=== PATIENT | male | born 1960 | race African-American/Black ===

== ENCOUNTER 2017-08-19 17:35 | Emergency (ER) | payer MEDICAID ==
[~2017-08-19] VITALS: Ht 175.3 cm; Wt 132.7 kg
[~2017-08-19 17:35] MED LIST: ASPI-1159 PO; BENA20TA3 PO; CHOL200010 PO; CHOL20004 PO; CLOP75TA33 PO; DOCU-138 PO; GEMF600T3 PO; ISOS30TA6 PO; METF500T6 PO; METO25TA6 PO; OMEP20CA10 PO
[2017-08-19] MEDS ORDERED: HYDROCODONE/ACETAMINOPHEN 5/325MG TABLET PO ONE ×2 (22:00→22:15)
[2017-08-19] MEDS ORDERED: ONDANSETRON 4MG ODT PO ONE (22:00)
[2017-08-19 22:35] LABS: BASOPHILS % 0.4 % (0.0-2.0); EOSINOPHILS % 2.4 % (0.0-5.0); HEMATOCRIT. 39.6 % (42.0-52.0); HEMOGLOBIN. 12.8 g/dL (14.0-18.0); LYMPHOCYTES % 37.1 % (20.0-50.0); MEAN CORPUSCULAR HEMOGLOBIN 23.5 pg (28.0-32.0); MEAN CORPUSCULAR VOLUME 72.8 fL (80.0-94.0); MEAN PLATELET VOLUME 7.7 fl (7.4-10.4); MONOCYTES % 8.5 % (2.0-8.0); NEUTROPHILS % 51.6 % (40.0-76.0); PLATELET 280 x1000/uL (130-400); RED BLOOD CELL COUNT 5.44 mill/uL (4.7-6.1); RED CELL DISTRIBUTION WIDTH 15.1 % (11.6-14.6)
[2017-08-19 22:40] LABS: INR 1.1; PARTIAL THROMBOPLASTIN TIME 25.9 sec (23.4-31.0)
[2017-08-20 00:32] VITALS: BP 137/82
== END 2017-08-20 00:34 | disposition home or self-care (01) ==
LOC: ER 17:35
DX: S70.12XA Contusion of left thigh, initial encounter (principal); I10 Essential (primary) hypertension; E66.01 Morbid (severe) obesity due to excess calories; E11.9 Type 2 diabetes mellitus without complications; I25.2 Old myocardial infarction; Z68.41 Body mass index [BMI] 40.0-44.9, adult; W18.39XA Other fall on same level, initial encounter; Y93.89 Activity, other specified; Y92.89 Other specified places as the place of occurrence of the external cause; Y99.8 Other external cause status
CPT/HCPCS: 36415; 73552; 76881; 82962; 85025; 85610; 85730; 99285; Q0162

== ENCOUNTER 2018-07-30 16:09 | Emergency (ER) | payer SELFPAY ==
[~2018-07-30] VITALS: Ht 175.3 cm; Wt 130.0 kg
[~2018-07-30 16:09] MED LIST changes: -ASPI-1159 PO; +ASPI-1393 PO; +BENA20TA10 PO; -BENA20TA3 PO; -GEMF600T3 PO; +GEMF600T5 PO; +METF-414 PO; -METF500T6 PO; -OMEP20CA10 PO; +OMEP20CA5 PO
[2018-07-30] MEDS ORDERED: SODIUM CHLORIDE 0.9% 1,000 ML IV ONE (19:52)
[2018-07-30] MEDS ORDERED: FAMOTIDINE 20MG/2ML VIAL IV STA (19:52)
[2018-07-30] MEDS ORDERED: MORPHINE SULFATE 4 MG/ML CPJ (NOT FOR IM USE) IV STA (19:52)
[2018-07-30] MEDS ORDERED: ONDANSETRON HCL 4MG/2ML INJ IV STA (19:52)
[2018-07-30 20:06] LABS: BASOPHILS % 0.4 % (0.0-2.0); EOSINOPHILS % 1.6 % (0.0-5.0); HEMATOCRIT. 41.3 % (42.0-52.0); HEMOGLOBIN. 13.6 g/dL (14.0-18.0); LYMPHOCYTES % 36.7 % (20.0-50.0); MEAN CORPUSCULAR VOLUME 72.5 fL (80.0-94.0); MEAN PLATELET VOLUME 7.3 fl (7.4-10.4); MONOCYTES % 6.3 % (2.0-8.0); PLATELET 249 x1000/uL (130-400)
[2018-07-30 20:07] LABS: CLARITY URINE CLEAR (CLEAR); COLOR URINE YELLOW (YELLOW); KETONES URINE NEGATIVE (NEGATIVE); LEUKOCYTE ESTERASE URINE NEGATIVE (NEGATIVE); NITRITE URINE NEGATIVE (NEGATIVE); OCCULT BLOOD URINE NEGATIVE (NEGATIVE); PH URINE 6.5 (4.5-8.0); PROTEIN URINE NEGATIVE (NEGATIVE); SPECIFIC GRAVITY URINE 1.016 (1.005-1.030)
[2018-07-30 20:10] LABS: CHLORIDE 104 mEq/L (98-107)
[2018-07-30 20:14] LABS: PROTHROMBIN TIME 10.7 sec (9.6-11.0)
[2018-07-30 21:56] VITALS: BP 162/87
== END 2018-07-30 22:11 | disposition home or self-care (01) ==
LOC: ER 16:09
DX: K80.20 Calculus of gallbladder without cholecystitis without obstruction (principal); I10 Essential (primary) hypertension; E11.9 Type 2 diabetes mellitus without complications; Z79.899 Other long term (current) drug therapy
CPT/HCPCS: 36415; 71045; 76705; 80053; 81003; 83605; 83690; 84484; 85025; 85610; 93005; 96361; 96374; 96375; 99284; J2270; J2405; J3490; J7030